=== PATIENT | female | born 2000 | race Caucasian/White ===

== ENCOUNTER 2018-10-18 16:26 | Emergency (ER) | payer OTHER, SELFPAY ==
[2018-10-18 16:53] LABS: #Basophils 0.1 thou/uL (0.0-0.2); #Lymphocytes 0.4 thou/uL (1.20-3.40); #Monocytes 0.3 thou/uL (0.11-0.59); #Neutrophils 11.4 thou/uL (1.40-6.50); %Basophils 0.9 % (0.0-1.0); %Eosinophils 0.1 % (0.0-10.0); %Lymphocytes 2.8 % (28.0-48.0); %Monocytes 2.7 % (0.0-4.0); %Neutrophils 93.5 % (31.0-61.0); Hemoglobin 14.6 g/dL (12.0-16.0); Mean Corpuscular Hemoglobin 28.5 pg (25.0-35.0); Mean Corpuscular Volume 86.6 fL (78.0-98.0); Mean Platelet Volume 8.1 fL (7.4-10.4); Platelet Count 282 thou/uL (130-400); RBC Distribution Width 12.6 % (11.5-14.5); Red Blood Cell (RBC) Count 5.13 mill/uL (4.00-5.20); White Blood Cell (WBC) Count 12.2 thou/uL (4.8-10.8)
[2018-10-18 17:12] LABS: ALT (SGPT) 11 U/L (8-55); AST (SGOT) 16 U/L (5-34); Alkaline Phosphatase 89 U/L (40-150); Anion Gap 17 mmol/L (10-20); BUN (Urea Nitrogen) 8 mg/dL (7.0-18.7); Bilirubin, Total 0.8 mg/dL (0.2-1.2); Calc. Creatinine Clearance 0 mL/min (70-130); Calcium 10.2 mg/dL (7.8-10.44); Carbon Dioxide 17 mmol/L (22-29); Chloride 105 mmol/L (98-107); Estimated GFR-MDRD 85; Globulin 4.1 g/dL (2.4-3.5); Glucose 116 mg/dL (70-105); Lipase 23 U/L (8-78); Potassium 3.9 mmol/L (3.5-5.1); Protein, Total 9.1 g/dL (6.0-8.3); Sodium 135 mmol/L (136-145)
[2018-10-18 17:39] LABS: BHCG - Serum POSITIVE (NEGATIVE); Pregs Control Background? CLEAR/WHITE (CLR/WHITE); Pregs Control Bar Appear? YES (CONTROL BAR)
[2018-10-18] MEDS ORDERED: Promethazine HCl 25 MG/ML VIAL ONE (18:31)
[2018-10-18 20:13] LABS: Bilirubin Negative (Negative); Blood, Urine Negative (Negative); Clarity CLEAR (Clear); Glucose, Urine (Dipstick) Negative (Negative); Leukocyte Small (Negative); Nitrite Negative (Negative); Protein, Urine (Dipstick) Negative (Neg-Trace); Specific Gravity, Urine 1.024 (1.002-1.036); Urobilinogen 0.2 mg/dL (0.2-1.0); pH, Urine 5.5 (5.0-9.0)
[2018-10-18 20:14] LABS: Pathc Cast-AUWi Flag 1.45 (0-2.49)
[2018-10-18 20:22] LABS: Bacteria/HPF Rare-Few HPF (None Seen); RBC/HPF 0-3 HPF (0-3)
[2018-10-18 20:23] LABS: Hyaline Casts/LPF 0-3 HYALINE CAST LPF (0-3 Hyaline)
== END 2018-10-18 21:26 | disposition home or self-care (01) ==
LOC: ERS 16:26
DX: O21.9 Vomiting of pregnancy, unspecified (principal); O99.340 Other mental disorders complicating pregnancy, unspecified trimester; F41.9 Anxiety disorder, unspecified; F32.9 Major depressive disorder, single episode, unspecified; O99.519 Diseases of the respiratory system complicating pregnancy, unspecified trimester; J45.909 Unspecified asthma, uncomplicated
CPT/HCPCS: 36415; 80053; 81003; 81015; 83690; 84702; 84703; 85025; 96361; 96374; J2550

== ENCOUNTER 2019-01-16 07:45 | Emergency (ER) | payer OTHER, SELFPAY | END 2019-01-16 09:13 | disposition home or self-care (01) | LOC: ERS 07:45 | DX: O99.89 Other specified diseases and conditions complicating pregnancy, childbirth and the puerperium (principal); R06.02 Shortness of breath; O99.612 Diseases of the digestive system complicating pregnancy, second trimester; K02.9 Dental caries, unspecified; O99.512 Diseases of the respiratory system complicating pregnancy, second trimester; J45.909 Unspecified asthma, uncomplicated; O99.342 Other mental disorders complicating pregnancy, second trimester; F41.9 Anxiety disorder, unspecified; F32.9 Major depressive disorder, single episode, unspecified; Z3A.17 17 weeks gestation of pregnancy | CPT/HCPCS: 93005; 94640; J7620 ==

== ENCOUNTER 2019-02-04 15:45 | Day surgery (SDC) | payer OTHER ==
[2019-02-04 16:35] LABS: Bilirubin Negative (Negative); Blood, Urine Negative (Negative); Clarity Slightly Cloudy (Clear); Glucose, Urine (Dipstick) Negative (Negative); Leukocyte Moderate (Negative); Nitrite Negative (Negative); Protein, Urine (Dipstick) Negative (Neg-Trace); Specific Gravity, Urine 1.015 (1.005-1.030); Urobilinogen 0.2 mg/dL (0.2-1.0)
[2019-02-04 16:41] LABS: RBC/HPF 0-3 HPF (0-3); Renal Epithelial 0-3 HPF (0-3)
[2019-02-04 16:42] LABS: Bacteria/HPF 2+ HPF (None Seen); Squamous Epithelial 0-3 HPF (0-3)
[2019-02-04 17:34] VITALS: BMI 29.8
--- NOTE | 2019-02-04 19:09 | ER ---
DATE OF SERVICE: 02/04/2019 PRIMARY OB: Pardeep Taylor MD CHIEF COMPLAINT: Cramping. HISTORY OF PRESENT ILLNESS: The patient is a 18-year-old, G3, P1 female with an intrauterine at 21 weeks, who presented to [facility] ER with concerns of dizziness and cramping. After evaluation there, urinalysis was collected, and the patient was sent to Labor and Delivery for OB evaluation. The patient at the time of transfer was reported to have history of 16-week delivery and uterine contractions since 3 hours prior to time of transfer. Upon arrival, the patient reports that she has been having this cramping off and on for a couple weeks, and has felt that more intently today. She also reports lower back pain and reports that she vomited today after lunch and had attributed her nausea and vomiting to something other ordinary that she ate. The patient denies fever or fall. The patient reports she has had headaches since she has vomited. Denies chest pain or shortness of breath. Denies diarrhea. Has had some constipation this . Denies any new rashes. The patient has had some hip and knee problems since her teenage years. Denies any vaginal bleeding, leakage of fluid, or change in discharge. She denies any urinary urgency. PAST MEDICAL HISTORY: Asthma and heart murmur. PAST SURGICAL HISTORY: Negative. ALLERGIES: SULFA, PENICILLIN, AMOXICILLIN. PSYCHIATRIC HISTORY: Anxiety and depression. CURRENT MEDICATIONS: vitamins. SOCIAL HISTORY: Denies drug, alcohol, or tobacco use. OB LABS: Unavailable at the time of dictation. REVIEW OF SYSTEMS: Per HPI. PHYSICAL EXAMINATION: VITAL SIGNS: Blood pressure 121/74, heart rate of 83, respiratory rate of 20, saturating 100% on room air, temperature 98.4. GENERAL: She appears to be in no acute distress. She is alert, oriented, cooperative, and pleasant to interact with. HEENT: Head, normocephalic and atraumatic. LUNGS: Clear to auscultation bilaterally. HEART: Has regular rate and rhythm. ABDOMEN: Soft. She does have some suprapubic tenderness. She has no CVA tenderness. No vertebral tenderness. She does have some SI joint tenderness to palpation. EXTREMITIES: Nontender, nonedematous. : The patient has declined exam. DIAGNOSTIC AND LABORATORY DATA: heart tracing shows Dopplers in the 140s and no contractions seen on the monitor. Urinalysis demonstrates urine with moderate leukocyte esterase, 4 to 6 white blood cells, 2+ bacteria, and 0 to 3 squamous cells. ASSESSMENT AND PLAN: The patient is a 18-year-old female with an intrauterine at 21 weeks, who has urinary tract infection. Her crampiness may be attributed to that. The patient was offered to have her cervix checked by the nurse to make sure she has no unexpected cervical changes given her history of 16-week loss, the patient has declined. She has been given a prescription of Macrobid 100 mg to be taken twice a day for the next week and encouraged to take the entire prescription. She has also been asked to call her primary OB, Dr. Taylor, to be seen in the next week for an ER followup. She has otherwise been given reassurance and is being discharged to home, and has also been given instructions should she experience fever or increasing worsening symptoms to call her doctor or seek medical attention. Job ID: [id number]
== END 2019-02-04 18:28 | disposition home health service (06) ==
LOC: L&D/OP 15:45 → SCSER 15:45 → EDSTATUS 17:19 → L&D/OP 18:28
PROVIDERS: ATTEND Obstetrics & Gynecology
DX: O23.42 Unspecified infection of urinary tract in pregnancy, second trimester (principal); O99.89 Other specified diseases and conditions complicating pregnancy, childbirth and the puerperium; M54.5 Low back pain; O99.512 Diseases of the respiratory system complicating pregnancy, second trimester; J45.909 Unspecified asthma, uncomplicated; O99.342 Other mental disorders complicating pregnancy, second trimester; F41.9 Anxiety disorder, unspecified; F32.9 Major depressive disorder, single episode, unspecified; Z3A.21 21 weeks gestation of pregnancy; Z88.0 Allergy status to penicillin; Z88.2 Allergy status to sulfonamides; Z79.899 Other long term (current) drug therapy; Z91.013 Allergy to seafood; Z91.018 Allergy to other foods
CPT/HCPCS: 81003; 81015; 87086; 99283

== ENCOUNTER 2019-05-20 13:50 | Day surgery (SDC) | payer MEDICAID, OTHER ==
[2019-05-20 14:24] VITALS: BP 118/76; TEMP 98.9; BMI 32.9
[2019-05-20] MEDS ORDERED: hydrALAZINE 20 MG/ML VIAL SLOW IVP PRN (14:34)
--- NOTE | 2019-05-20 14:59 | PDOC.LDHP ---
Labor and Delivery H&P HPI: Time: 1450 Location: Triage A CC: Posible CTX 19 yo at 34 weeks 4 days with possible CTX. Sex this AM. No VB, no LOF, good FM. HX recurrent UTIs but no sxs now. Review of Systems: past hx depression and bulemia...no acute needs Current gestational age (weeks): 34 (4 days) Dating criteria: last menstrual period Grav: 2 Para: 0 Current complications: none Abnormal US findings: No Past Medical History: Depression and Bulemia Current medications: pre-molly vitamins Previous surgical history: other (wisdom teeth) Allergies/Adverse Reactions: Allergies Allergy/AdvReac Type Severity Reaction Status Date / Time shellfish derived Allergy Intermediate Rash Verified 02/04/19 17:32 strawberry Allergy Intermediate Rash Verified 02/04/19 17:32 Sulfa (Sulfonamide Allergy Intermediate Rash Verified 02/04/19 17:32 Antibiotics) Latex, Natural Rubber Allergy Verified 05/20/19 14:25 Social history: none - Physical Exam Vital signs reviewed and normal: yes (118/76 98 97% 98.9) General: NAD Heart: RRR Lungs: CTAB Abdomen: gravid Extremeties: no edema FHT: category 1 [place] contractions every: irrritability - Assessment Threatened PTL at 34 weeks, reactive NST - Plan Plan: observation in L&D (Need Cervical check...pending.)
== END 2019-05-20 15:21 | disposition home health service (06) ==
LOC: L&D/OP 13:50
PROVIDERS: ATTEND Obstetrics & Gynecology
DX: O47.03 False labor before 37 completed weeks of gestation, third trimester (principal); Z3A.34 34 weeks gestation of pregnancy; Z88.2 Allergy status to sulfonamides; Z91.013 Allergy to seafood; Z91.018 Allergy to other foods; Z91.040 Latex allergy status
CPT/HCPCS: 59025; 99283

== ENCOUNTER 2019-05-30 12:04 | Emergency (ER) | payer OTHER ==
--- NOTE | 2019-05-30 13:56 | ULT ---
OB ULTRASOUND: Date: 05/30/19 HISTORY: female who fell down steps with abdominal pain. TECHNIQUE: Multiplanar Ho scale and color Doppler images were obtained in a limited transabdominal ultra sound. FINDINGS: The fetus is in cephalic presentation. The placenta is posterior in location without evidence of plac enta previa. JULI is 15.8, which is normal. There is a live intrauterine with heart rate of 139 bpm. The average age of the fetus based off today's examination is 37 weeks/0 days. The following measurements were taken and dates based off these measurements are as follows: BPD: 9.31 cm, 37 weeks/6 days HC: 32.75 cm, 37 weeks/1 day AC: 32.34 cm, 36 weeks/2 days FL: 7.11 cm, 36 weeks/3 days IMPRESSION: 1. Single, live intrauterine , with estimated age at 37 weeks and 0 days. 2. No evidence of traumatic injury to the fetus. POS: [facility]
--- NOTE | 2019-05-30 13:57 | RAD ---
3 VIEWS RIGHT FOOT: Date: 05/30/19 COMPARISON: None. HISTORY: Fall with right foot pain. FINDINGS: 3 views of the right foot show no evidence of acute fracture or dislocation. No degenerative changes are seen. Mild dorsal soft tissue swelling is seen. IMPRESSION: No evidence of acute osseous abnormality. POS: [facility]
== END 2019-05-30 14:10 | disposition home or self-care (01) ==
LOC: ERS 12:04
DX: O99.89 Other specified diseases and conditions complicating pregnancy, childbirth and the puerperium (principal); M79.671 Pain in right foot; O99.511 Diseases of the respiratory system complicating pregnancy, first trimester; J45.909 Unspecified asthma, uncomplicated; O99.341 Other mental disorders complicating pregnancy, first trimester; F41.9 Anxiety disorder, unspecified; F32.9 Major depressive disorder, single episode, unspecified; Z79.51 Long term (current) use of inhaled steroids; Z3A.01 Less than 8 weeks gestation of pregnancy
CPT/HCPCS: 76815

== ENCOUNTER 2019-05-30 14:24 | Day surgery (SDC) | payer OTHER ==
[2019-05-30] MEDS ORDERED: hydrALAZINE 20 MG/ML VIAL SLOW IVP PRN (15:35)
[2019-05-30 15:49] VITALS: BMI 33.0
--- NOTE | 2019-05-30 16:09 | PRG ---
DATE OF SERVICE: 05/30/2019 PRIMARY OB: Dr. Pardeep Taylor. CHIEF COMPLAINT: Fall. HISTORY OF PRESENT ILLNESS: The patient is a 19-year-old G2, P0 female with an intrauterine at 36 weeks, who is presenting to the emergency room after a fall down a couple of steps resulting in her side hitting the banister and then catching herself with her hands. The patient denies any other abdominal trauma. She denies any vaginal bleeding. She reports that she felt a contraction earlier but has not felt anything since. She reports the fall happened about 11:30 this morning 4 hours prior to presentation here in Labor and Delivery. The patient denies any fever or illness, fall, headache, chest pain, shortness of breath. The patient has had nausea, no vomiting. The patient has had intermittent diarrhea or constipation to the . The patient does have a rash and was recently diagnosed with PUPPPs and just picked up steroid cream. She denies any vaginal bleeding or leakage of fluid. She denies hip problems, knee problems, or muscle weakness. PAST MEDICAL HISTORY: Asthma, anxiety, depression, migraines, polycystic ovarian syndrome, and heartburn. She was hospitalized in the past for 6 weeks for an eating disorder. PAST SURGICAL HISTORY: Negative. SOCIAL HISTORY: Denies drug, alcohol, or tobacco use. ALLERGIES: LATEX AND SULFA. MEDICATIONS: vitamins. OB LABS: Blood type is O positive. Antibody screen is negative. VDRL is nonreactive. Hepatitis B surface antigen is nonreactive. HIV is nonreactive. GC chlamydia negative. REVIEW OF SYSTEMS: Per HPI. PHYSICAL EXAMINATION: VITAL SIGNS: Blood pressure is 120/73, heart rate of 86, respiratory rate of 18, saturating 100% on room air, temperature 98. GENERAL: She appears to be in no acute distress. She is alert, oriented, cooperative, pleasant to interact with. HEAD: Normocephalic, atraumatic. LUNGS: Clear to auscultation bilaterally. HEART: Has regular rate and rhythm. ABDOMEN: Gravid and soft. No palpable contractions. She does have a little bit of tenderness in the right lower pelvic region with movement and deviation of the uterus. EXTREMITIES: Nontender, nonedematous. : Has been deferred. heart tracing shows a baby with a baseline in the 120s with moderate long-term variability, positive 15 x 15 accelerations, no decelerations. We seen some irritability, minimal irritability seen on the monitor. Again, no palpable contractions. ASSESSMENT AND PLAN: The patient is a 19-year-old G2, P0 female with an intrauterine at 36 weeks, status post a fall about 4 hours ago. Fall is not severe in nature and had minimal trauma to her belly. Given the fact the patient is nontender abdominally, no palpable contractions present during our exam and nothing clearly visible on the monitor and reactive baby with a category 1 tracing. I have offered the patient discharge home with instructions to return if she begins having more frequent and stronger contractions or vaginal bleeding. The patient has been counseled to follow up with her primary OB as scheduled. Job ID: [id number]
== END 2019-05-30 15:50 | disposition home health service (06) ==
LOC: L&D/OP 14:24
PROVIDERS: ATTEND Obstetrics & Gynecology
DX: O47.1 False labor at or after 37 completed weeks of gestation (principal); Z3A.36 36 weeks gestation of pregnancy; Z88.2 Allergy status to sulfonamides; Z91.040 Latex allergy status; W10.9XXA Fall (on) (from) unspecified stairs and steps, initial encounter

== ENCOUNTER 2019-06-01 20:26 | Day surgery (SDC) | payer OTHER ==
[2019-06-01 20:57] VITALS: BMI 33.0
[2019-06-01] MEDS ORDERED: hydrALAZINE 20 MG/ML VIAL SLOW IVP PRN (21:35)
--- NOTE | 2019-06-01 21:37 | PDOC.LDHP ---
Labor and Delivery H&P Chief complaint: loss of fluid HPI: Patient of Dr evangelista CC: LOF possible at 1730 19 yo at 36 weeks and 2 days possible LOF all day, sex was yesterday afetrnon, no VB, no fevers. Fell last sunday (2 days ago) and was normal evaluation. Review of Systems: complete ROS completed and as per HPI Current gestational age (weeks): 36 (2 days) Due date: 06/27/19 Dating criteria: last menstrual period Grav: 2 Para: 0 Current complications: none Past Medical History: Past HX anxiety and bulemia/anorexia PCOS Current medications: pre- vitamins Previous surgical history: other (wisdom teeth) Allergies/Adverse Reactions: Allergies Allergy/AdvReac Type Severity Reaction Status Date / Time shellfish derived Allergy Intermediate Rash Verified 02/04/19 17:32 strawberry Allergy Intermediate Rash Verified 02/04/19 17:32 Sulfa (Sulfonamide Allergy Intermediate Rash Verified 02/04/19 17:32 Antibiotics) Latex, Natural Rubber Allergy Verified 05/20/19 14:25 Social history: none - Physical Exam Vital signs reviewed and normal: yes General: NAD Heart: RRR Lungs: CTAB Abdomen: gravid Extremeties: no edema FHT: category 1 - Assessment Possible LOF at 36 weeks - Plan Plan: observation in L&D ( sent and check SSE)
[2019-06-01 21:40] LABS: Amnisure Internal Control QC ACCEPTABLE (ACCEPTABLE); Amnisure Test No Membranes Rupture (No Rupture)
--- NOTE | 2019-06-01 21:44 | PDOC.EVN ---
Event Note - Event Note Event Note: SSE inconclusive...but I do not suspect LOF Inconclusive because of recent vag intercourse within 24 hours (yesterday afternoon). pending CX 11/15// ballots rash on abdomen and LEs may be PUPPS
--- NOTE | 2019-06-01 21:48 | PDOC.EVN ---
Event Note - Event Note Event Note: negative Exam also not very C/W ROM PUPPS reviewed with her Needs eval again tomorrow in office
== END 2019-06-01 22:01 | disposition home or self-care (01) ==
LOC: L&D/OP 20:26
PROVIDERS: ATTEND Obstetrics & Gynecology
DX: O99.89 Other specified diseases and conditions complicating pregnancy, childbirth and the puerperium (principal); N89.8 Other specified noninflammatory disorders of vagina; O99.343 Other mental disorders complicating pregnancy, third trimester; F41.9 Anxiety disorder, unspecified; O99.283 Endocrine, nutritional and metabolic diseases complicating pregnancy, third trimester; E28.2 Polycystic ovarian syndrome; Z91.013 Allergy to seafood; Z91.040 Latex allergy status; Z91.018 Allergy to other foods; Z88.2 Allergy status to sulfonamides; Z3A.36 36 weeks gestation of pregnancy; W19.XXXA Unspecified fall, initial encounter
CPT/HCPCS: 84112; 99283

== ENCOUNTER 2019-06-25 10:09 | Inpatient (IN) | payer OTHER ==
--- NOTE | 2019-06-24 22:50 | PDOC.LDHP ---
Labor and Delivery H&P Chief complaint: scheduled section HPI: 19 y/o at 39 and 5/7 weeks presents for scheduled primary for macrosomia. Current gestational age (weeks): 39 Due date: 06/27/19 Grav: 2 Para: 0 Abnormal US findings: Yes ( Macrosomia) Current medications: pre-molly vitamins Previous surgical history: none Allergies/Adverse Reactions: Allergies Allergy/AdvReac Type Severity Reaction Status Date / Time shellfish derived Allergy Intermediate Rash Verified 02/04/19 17:32 strawberry Allergy Intermediate Rash Verified 02/04/19 17:32 Sulfa (Sulfonamide Allergy Intermediate Rash Verified 02/04/19 17:32 Antibiotics) Latex, Natural Rubber Allergy Verified 05/20/19 14:25 Social history: none - Physical Exam Vital signs reviewed and normal: yes General: NAD, resting, breathing through contractions Heart: RRR Lungs: nonlabored breathing Abdomen: NTTP Extremeties: trace edema FHT: category 1 - Assessment L&D Assessment: scheduled primary section - Plan Plan: admit to L&D, to OR for section
[~2019-06-25 10:09] MED LIST: Bicitra 30 ML UDCUP PO SCH; CEFAZOLIN 2 GM in Premix Bag 1 BAG IVPB SCH; Ondansetron PF 4 MG/2 ML Vial IVP PRN; Promethazine HCl 25 MG/ML VIAL IM PRN; hydrALAZINE 20 MG/ML VIAL SLOW IVP PRN
[2019-06-25 11:06] LABS: Hemoglobin 12.4 g/dL (12.0-16.0); Mean Corpuscular HGB CONC 34.5 g/dL (32.0-36.0); Mean Corpuscular Hemoglobin 29.4 pg (27.0-31.0); Mean Corpuscular Volume 85.1 fL (78.0-98.0); Mean Platelet Volume 9.9 fL (7.4-10.4); Platelet Count 218 thou/uL (130-400); RBC Distribution Width 13.2 % (11.5-14.5); Red Blood Cell (RBC) Count 4.22 mill/uL (4.20-5.40); White Blood Cell (WBC) Count 13.1 thou/uL (4.8-10.8)
[2019-06-25 11:13] VITALS: BMI 33.5
[2019-06-25] MEDS: Lactated Ringer's 1,000 ML IV SCH ×3 (11:15→23:23)
[2019-06-25] MEDS ORDERED: Ondansetron PF 4 MG/2 ML Vial ONE ×2 (11:20→12:27)
[2019-06-25] MEDS ORDERED: ePHEDrine 50 MG/ML VIAL ONE (11:20)
[2019-06-25 11:45] LABS: HBSAg Index 0.14 S/CO (0-0.99); Hep B Surf Ag Non-Reactive S/CO (NonReactive); Syphilis Antibody Nonreactive (Nonreactive); Syphilis Antibody Index 0.05 S/CO (<1.00 Non-Reactive)
[2019-06-25] MEDS ORDERED: MORPHINE 5 MG/10 ML PF VIAL ONE (12:26)
[2019-06-25] MEDS ORDERED: ePHEDrine/0.9% NaCl/PF SYRINGE 50 mg/10 ml ONE (12:27)
[2019-06-25] MEDS ORDERED: Oxytocin 10 UNITS/ML VIAL ONE (12:27)
[2019-06-25] MEDS ORDERED: Midazolam HCl 2 mg/2 ml Vial ONE (12:51)
[2019-06-25] MEDS ORDERED: Promethazine HCl 25 MG/ML VIAL ONE (13:24)
[2019-06-25] MEDS ORDERED: Naloxone HCl 0.4 mg/ml Vial IVP PRN ×2 (14:06)
[2019-06-25] MEDS ORDERED: Promethazine HCl 25 MG SUPP PR PRN (14:06)
[2019-06-25] MEDS ORDERED: Naloxone HCl 0.4 mg/ml Vial IV PRN (14:06)
[2019-06-25] MEDS ORDERED: Meperidine HCl/PF 25 MG/ML VIAL SLOW IVP PRN (14:06)
[2019-06-25] MEDS ORDERED: Promethazine HCl 25 MG/ML VIAL IM PRN ×2 (14:06→19:12)
[2019-06-25] MEDS ORDERED: Ondansetron HCl/PF 4 MG/2 ML Vial IVP PRN (14:06)
[2019-06-25] MEDS ORDERED: Ondansetron PF 4 MG/2 ML Vial IVP PRN ×2 (14:06→19:12)
[2019-06-25] MEDS ORDERED: diphenhydrAMINE 50 MG/ML VIAL IVP PRN (14:06)
[2019-06-25] MEDS ORDERED: HYDROmorphone 2 MG/ML VIAL SLOW IVP PRN (14:06)
[2019-06-25] MEDS ORDERED: L&D-Morphine 4 MG/ML VIAL SLOW IVP PRN (14:06)
[2019-06-25] MEDS ORDERED: Communication Order-Pharmacy FS SCH (14:15)
[2019-06-25] MEDS ORDERED: Ketorolac Tromethamine 30 MG/ML VIAL IVP SCH (14:15)
[2019-06-25] MEDS ORDERED: NS / Oxytocin 40 units/1000ml 1,000 ML ONE (15:38)
[2019-06-25] MEDS ORDERED: Varicella virus, LIVE 0.5 ML VIAL SC ONE (19:12)
[2019-06-25] MEDS ORDERED: hydrALAZINE 20 MG/ML VIAL SLOW IVP PRN (19:12)
[2019-06-25] MEDS ORDERED: Adacel (T-DAP) 0.5 ML SYRINGE IM ONE (19:12)
[2019-06-25] MEDS ORDERED: Measles/Mumps/Rubella 10 MCG/0.5 ML VIAL SC ONE (19:12)
[2019-06-25] MEDS ORDERED: NS / Oxytocin 40 units/1000ml 1,000 ML IV SCH (19:12)
[2019-06-25] MEDS ORDERED: Lanolin Ointment 7 GM TUBE TOP PRN (19:12)
[2019-06-25] MEDS ORDERED: Acetaminophen 325 MG TAB PO PRN (19:12)
[2019-06-25] MEDS ORDERED: diphenhydrAMINE 25 MG CAP PO PRN (19:12)
[2019-06-25] MEDS ORDERED: Bisacodyl 10 MG SUPP PR PRN (19:12)
[2019-06-25] MEDS: Ketorolac Tromethamine 30 MG/ML VIAL IVP PRN (20:08)
[2019-06-25] MEDS: Simethicone Chewable 80 MG TAB PO PRN (20:50)
[2019-06-25] MEDS: Docusate Calcium (SURFAK) 240 MG CAP PO SCH (23:44)
[2019-06-26] MEDS: Ketorolac Tromethamine 30 MG/ML VIAL IVP PRN (01:52)
[2019-06-26] MEDS ORDERED: HYDROcodone/Acetaminophen 5/325 mg Tablet PO PRN (02:15)
[2019-06-26] MEDS ORDERED: Zolpidem Tartrate 5 MG TAB PO PRN (02:15)
[2019-06-26] MEDS: Simethicone Chewable 80 MG TAB PO PRN ×4 (04:19→21:36)
[2019-06-26 06:27] LABS: Hemoglobin 10.3 g/dL (12.0-16.0); Mean Corpuscular HGB CONC 33.4 g/dL (32.0-36.0); Mean Platelet Volume 9.5 fL (7.4-10.4); Platelet Count 172 thou/uL (130-400); RBC Distribution Width 13.3 % (11.5-14.5); Red Blood Cell (RBC) Count 3.53 mill/uL (4.20-5.40); White Blood Cell (WBC) Count 10.9 thou/uL (4.8-10.8)
[2019-06-26] MEDS: Prenatal Vitamin 1 TAB PO SCH (09:49)
[2019-06-26] MEDS: Docusate Calcium (SURFAK) 240 MG CAP PO SCH ×2 (09:49→21:35)
[2019-06-26] MEDS: HYDROcodone/Acetaminophen 5/325 mg Tablet PO PRN ×3 (09:49→20:38)
[2019-06-26] MEDS: Ibuprofen 800 MG TAB PO SCH ×2 (14:12→21:36)
--- NOTE | 2019-06-26 20:30 | PDOC.PP ---
Post Progress Note Post Day #: 1 PO intake tolerated: yes Flatus: yes Ambulation: yes Vital Signs (12 hours) Temp Pulse Resp BP Pulse Ox 06/26/19 15:18 98.9 F 109 H 16 112/67 98 06/26/19 12:17 98.3 F 86 16 132/71 Weight Weight 240 lb - Physical Examination General: NAD Cardiovascular: no m/r/g, RRR Respiratory: clear to auscultation bilaterally, non-labored breathing Abdominal: + bowel sounds, lochia, no distention, appropriately TTP Extremities: negative homans (B) Skin: CS incision dry & intact, no rash Neurological: no gross focal deficits Psychiatric: A&Ox3, normal affect Result Diagrams: 06/26/19 06:15 Additional Labs: Post Labs Blood Type O POSITIVE 06/25/19 11:23 Hep Bs Antigen Non-Reactive S/CO (NonReactive) 06/25/19 10:52
--- NOTE | 2019-06-27 02:44 | OP ---
DATE OF PROCEDURE: 06/25/2019 TIME OF SERVICE: 1304 central daylight savings time. PREOPERATIVE DIAGNOSES: Intrauterine at 39 weeks and 5 days with a history of morbid obesity, chronic hypertension, and macrosomia. POSTOPERATIVE DIAGNOSES: Intrauterine at 39 weeks and 5 days with a history of morbid obesity, chronic hypertension, and macrosomia as well as abnormal uterine lesion. PROCEDURES PERFORMED: 1. Primary low transverse section. 2. Myomectomy of single fibroid. FINDINGS: Viable female weighing 4438 g or 9 pounds 13 ounces. Apgars of 8 and 9. Abnormal uterine lesion on the posterior aspect of the uterus. QUANTITATIVE BLOOD LOSS: 355 mL. COMPLICATIONS: None. DETAILS OF THE PROCEDURE: The patient was consented and taken back to the operating room where spinal anesthesia was found to be adequate. She was then prepped and draped in the normal sterile fashion. A timeout was performed by the entire operative team. The incision was then marked with a marking pen tested using sharp pickups. An incision was then made with a scalpel. The incision was carried through the adipose tissue down to the underlying rectus fascia using both sharp dissection as well as cautery. Once the fascia was identified, it was incised in the midline and then the fascial incision was carried through in both lateral directions using sharp as well as cautery dissection techniques. Next, the superior aspect of the rectus fascia was grasped with 2 Reynaldo clamps, which was tented up and the rectus muscles were dissected off using blunt dissection as well as cautery dissection. Similarly, the inferior aspect of the fascial incision was grasped with 2 Reynaldo clamps, tented up and the rectus muscles were dissected off bluntly as well as sharply. Next, the rectus muscles were in the midline and the peritoneum identified. The peritoneum was then carefully grasped with 2 hemostats and entered sharply. The peritoneal incision was extended superiorly and inferiorly and bladder blade was placed in the lower abdomen. At this point, the uterus was identified and the bladder flap was then developed using pickups with teeth as well as Metzenbaum scissors in both lateral directions. The bladder flap was then dissected downwards using the shot core drill operator helper's finger as well as Metzenbaum scissors. The bladder blade was replaced. The lower uterine segment was then identified and entered sharply using a clean scalpel. The uterine incision was then dissected downwards until thin layer of muscle remained and this was entered bluntly using a hemostat to avoid any injury to the baby. The uterine incision was then stretched using two fingers in both lateral directions. An amniotomy was performed artificially using a hemostat and the baby was delivered using fundal pressure in a gentle fashion. Once out, the baby's mouth and nose were bulb suctioned, cord clamped and cut, and the baby was handed to waiting attendants. Next, the uterus was exteriorized, cleared of all clots and debris and the uterine incision was repaired with #1 Monocryl in a running locking fashion. A 2nd suture of the same type was used to obtain complete hemostasis at the uterine incision. The bladder flap was reapproximated using 3-0 Monocryl. Next, patient's left and right adnexa were inspected and appeared to be within normal limits. The posterior cul-de-sac was blotted dry and hemostasis assured. One more look at the uterine incision demonstrated hemostasis. Next, the uterus was replaced back within the abdomen. The peritoneum was reapproximated using 2-0 Monocryl without difficulty. The rectus muscles were then allowed to come back together and 0 chromic was used to aid in reapproximation of the muscle as necessary. The rectus fascia was then reapproximated in a running fashion using 0 Vicryl suture. The adipose tissue was then examined and appeared to be well approximated without any obvious separations. Finally, the skin was reapproximated with 3-0 Monocryl on a Everett needle without difficulty and Dermabond adhesive was applied to the skin. Once the glue was dry, the drapes were removed and the patient was transferred to an ambulatory bed where she was taken to recovery awake and in stable condition. Sponge, lap, and needle counts were correct x3. After closure of the uterus and obtaining hemostasis, inspection of the uterus did reveal an abnormal appearing lesion on the posterior aspect of the uterus. This lesion was firm, hard, and raised below the serosal surface. This may represent a uterine fibroid, but a definitive diagnosis could not be made visually. Neoplasm could not be completely ruled out visually. As such, this lesion was excised using both sharp and cautery dissection technique and sent to Pathology for permanent section. Hemostasis at the uterine surface was assured using chromic suture closure as well as cautery. The rest of the surgery continued without incident. Job ID: [id number]
[2019-06-27] MEDS: Ibuprofen 800 MG TAB PO SCH ×3 (05:30→22:18)
[2019-06-27] MEDS: HYDROcodone/Acetaminophen 5/325 mg Tablet PO PRN ×3 (05:34→19:44)
[2019-06-27] MEDS: Prenatal Vitamin 1 TAB PO SCH (09:20)
[2019-06-27] MEDS: Docusate Calcium (SURFAK) 240 MG CAP PO SCH ×2 (09:20→19:43)
[2019-06-27] MEDS: Simethicone Chewable 80 MG TAB PO PRN ×3 (09:22→19:43)
[2019-06-28] MEDS: HYDROcodone/Acetaminophen 5/325 mg Tablet PO PRN ×2 (00:56→11:13)
[2019-06-28] MEDS: Ibuprofen 800 MG TAB PO SCH ×2 (06:11→11:13)
[2019-06-28 08:58] VITALS: BP 118/76; TEMP 97.9
[2019-06-28] MEDS: Prenatal Vitamin 1 TAB PO SCH (09:21)
[2019-06-28] MEDS: Docusate Calcium (SURFAK) 240 MG CAP PO SCH (09:21)
== END 2019-06-28 12:15 | disposition home or self-care (01) | DRG 787 ==
LOC: UNDOADMIN 10:09 → EEVIPCON 10:09 → L&D 10:09 → 3SW 16:30 → EDSTATUS 07-21 15:12
PROVIDERS: ADMIT Obstetrics & Gynecology; ATTEND Obstetrics & Gynecology
PROC: 10D00Z1 Extraction of Products of Conception, Low, Open Approach (ICD-10-PCS; principal; 2019-06-25)
PROC: 0UB90ZZ Excision of Uterus, Open Approach (ICD-10-PCS; 2019-06-25)
DX: O36.63X0 Maternal care for excessive fetal growth, third trimester, not applicable or unspecified (principal); O10.92 Unspecified pre-existing hypertension complicating childbirth; O34.13 Maternal care for benign tumor of corpus uteri, third trimester; O99.214 Obesity complicating childbirth; E66.01 Morbid (severe) obesity due to excess calories; D25.2 Subserosal leiomyoma of uterus; Z3A.39 39 weeks gestation of pregnancy; Z37.0 Single live birth
CPT/HCPCS: 36415; 51702; 85027; 86780; 86850; 86900; 86901; 87340; 88305; 90707; 90716; J0690; J1885; J2250; J2274; J2310; J2405; J2550; J2590; J3490

== ENCOUNTER 2019-07-25 18:36 | Emergency (ER) | payer OTHER | END 2019-07-25 20:30 | disposition home or self-care (01) | LOC: ERS 18:36 | DX: O86.00 Infection of obstetric surgical wound, unspecified (principal); J45.909 Unspecified asthma, uncomplicated; F41.9 Anxiety disorder, unspecified; F32.9 Major depressive disorder, single episode, unspecified | CPT/HCPCS: 99283 ==

== ENCOUNTER 2019-10-20 16:08 | Emergency (ER) | payer OTHER ==
[2019-10-20] MEDS ORDERED: Acetaminophen 325 MG TAB ONE (17:23)
[2019-10-20] MEDS ORDERED: Ondansetron ODT 4 MG TAB ONE (17:23)
[2019-10-20 17:48] LABS: #Basophils 0.1 thou/uL (0.0-0.2); #Eosinphils 0.1 thou/uL (0.0-0.7); #Lymphocytes 2.9 thou/uL (1.20-3.40); #Monocytes 0.6 thou/uL (0.11-0.59); #Neutrophils 6.8 thou/uL (1.40-6.50); %Basophils 0.7 % (0.0-1.0); %Eosinophils 0.8 % (0.0-10.0); %Monocytes 5.8 % (0.0-10.0); %Neutrophils 64.7 % (42.0-75.0); Hemoglobin 14.4 g/dL (12.0-16.0); Mean Corpuscular HGB CONC 32.1 g/dL (32.0-36.0); Mean Corpuscular Hemoglobin 27.6 pg (27.0-31.0); Mean Corpuscular Volume 85.8 fL (78.0-98.0); Mean Platelet Volume 8.7 fL (7.4-10.4); Platelet Count 293 thou/uL (130-400); RBC Distribution Width 12.5 % (11.5-14.5); Red Blood Cell (RBC) Count 5.23 mill/uL (4.20-5.40); White Blood Cell (WBC) Count 10.4 thou/uL (4.8-10.8)
[2019-10-20 18:12] LABS: ALT (SGPT) 25 U/L (8-55); AST (SGOT) 20 U/L (5-34); Alkaline Phosphatase 101 U/L (40-110); Anion Gap 14 mmol/L (10-20); BUN (Urea Nitrogen) 4 mg/dL (7.0-18.7); Bilirubin, Total 0.4 mg/dL (0.2-1.2); Calc. Creatinine Clearance 0 mL/min (70-130); Calcium 9.8 mg/dL (7.8-10.44); Carbon Dioxide 23 mmol/L (22-29); Chloride 107 mmol/L (98-107); Estimated GFR-MDRD Greater than 90; Globulin 3.9 g/dL (2.4-3.5); Glucose 86 mg/dL (70-105); Potassium 3.5 mmol/L (3.5-5.1); Protein, Total 8.9 g/dL (6.0-8.3); Sodium 140 mmol/L (136-145)
[2019-10-20 18:40] LABS: Bilirubin Negative (Negative); Blood, Urine Negative (Negative); Clarity Clear (Clear); Glucose, Urine (Dipstick) Normal (Negative); Leukocyte 75 Leu/uL (Negative); Nitrite Negative (Negative); Protein, Urine (Dipstick) Negative (Neg-Trace); RBC/HPF 0-3 HPF (0-3); Urobilinogen Normal mg/dL (Less than 2); WBC/HPF 0-3 HPF (0-3)
[2019-10-20 18:41] LABS: Bacteria/HPF 1+ HPF (None Seen); Pregnancy Test - Urine (BHCG) Negative (Negative); Pregu Control Background? CLEAR/WHITE (CLR/WHITE); Pregu Control Bar Appear? YES (CONTROL BAR); Specific Gravity 1.012 (1.002-1.036)
== END 2019-10-20 19:47 | disposition home or self-care (01) ==
LOC: ERS 16:08
DX: R10.9 Unspecified abdominal pain (principal); J45.909 Unspecified asthma, uncomplicated; F32.9 Major depressive disorder, single episode, unspecified; F41.9 Anxiety disorder, unspecified; F17.210 Nicotine dependence, cigarettes, uncomplicated; Z79.899 Other long term (current) drug therapy
CPT/HCPCS: 36415; 80053; 81003; 81015; 81025; 85025; 99284; Q0162

== ENCOUNTER 2019-11-24 09:01 | Outpatient (CLI) | payer OTHER ==
--- NOTE | 2019-11-24 09:48 | ULT ---
ULTRASOUND ABDOMEN COMPLETE: DATE: 11/24/2019 HISTORY: 19-year-old female with with left lower quadrant abdominal pain. FINDINGS: Gallbladder: Normal wall thickness. No gallstones or sludge identified. No pericholecystic fluid. Liver: Normal parenchymal echogenicity. Bilateral kidneys: No hydronephrosis. Pancreas: Nonspecific sonographic appearance. Common duct caliber: 1 mm. Abdominal aorta: No aneurysm Inferior vena cava: Unremarkable where visualized. Spleen: No splenomegaly. Static image of left lower quadrant demonstrates no mass or fluid collection. IMPRESSION: 1. Normal abdominal ultrasound. 2. Ultrasound is not the modality of choice for evaluating lower abdominal pain. Consider CT abdomen and pelvis with contrast, if clinically indicated.
== END 2019-11-24 09:02 | disposition home or self-care (01) ==
LOC: BICULT 09:01
PROVIDERS: ATTEND Nurse Practitioner Family
DX: R10.31 Right lower quadrant pain (principal)
CPT/HCPCS: 93975

== ENCOUNTER 2019-12-24 13:41 | Emergency (ER) | payer OTHER | END 2019-12-24 14:52 | disposition home or self-care (01) | LOC: ERS 13:41 | DX: F41.0 Panic disorder [episodic paroxysmal anxiety] (principal); J45.909 Unspecified asthma, uncomplicated; G43.909 Migraine, unspecified, not intractable, without status migrainosus; F17.210 Nicotine dependence, cigarettes, uncomplicated; Z79.899 Other long term (current) drug therapy | CPT/HCPCS: 36416; 99283 ==

== ENCOUNTER 2020-10-25 07:31 | Emergency (ER) | payer OTHER ==
--- NOTE | 2020-10-25 09:04 | RAD ---
PORTABLE CHEST: Date: 10/25/2020 HISTORY: Body aches and shortness of breath. FINDINGS: Heart size and mediastinum are within normal limits. Lungs are clear of any infiltrative process. No bony findings. IMPRESSION: No active intrathoracic disease. POS: OFF
[2020-10-25 13:07] LABS: SARS-CoV-2 MS2 Positive; SARS-CoV-2 N Gene Negative; SARS-CoV-2 S Gene Negative; SARS-CoV-2 by NAA Not Detected (NotDetected); SARS-CoV-2 orf1ab Negative
== END 2020-10-25 09:10 | disposition home or self-care (01) ==
LOC: ERS 07:31
DX: R06.02 Shortness of breath (principal); R53.83 Other fatigue; Z20.822 Contact with and (suspected) exposure to COVID-19; G43.909 Migraine, unspecified, not intractable, without status migrainosus; J45.909 Unspecified asthma, uncomplicated; F17.290 Nicotine dependence, other tobacco product, uncomplicated
CPT/HCPCS: 71045; 87635; U0003